=== PATIENT | male | born 1980 | race Caucasian/White ===

== ENCOUNTER 2022-02-21 00:59 | Emergency (ER) | payer SELFPAY ==
[2022-02-21] MEDS ORDERED: Benzocaine 20% Spray 60 ML CAN ONE (02:25)
[2022-02-21] MEDS ORDERED: Ondansetron PF 4 MG/2 ML Vial ONE (02:25)
[2022-02-21] MEDS ORDERED: Morphine 4 MG/ML VIAL ONE (02:25)
[2022-02-21] MEDS ORDERED: Lidocaine 1% w/Epinephrine 1:100K 20 ML VIAL ONE (04:01)
[2022-02-21] MEDS ORDERED: Ketorolac Tromethamine 30 MG/ML VIAL ONE (04:08)
== END 2022-02-21 05:56 | disposition home or self-care (01) ==
LOC: ERS 00:59
DX: J36 Peritonsillar abscess (principal); F17.210 Nicotine dependence, cigarettes, uncomplicated
CPT/HCPCS: 42700; 96374; 96375; J1885; J2270; J2405